=== PATIENT | female | born 1955 | race Caucasian/White ===

== ENCOUNTER 2020-08-06 00:04 | Inpatient (IN) | payer MEDICARE ==
[~2020-08-06] VITALS: Ht 162.6 cm; Wt 61.2 kg
--- NOTE | ~2020-08-06 | PROC ---
[address] [address] PROCEDURE REPORT Name: MARTITA TOTH Room: [address] [place] M.R.#: [id number] Admission: 08/06/20 Attend Phys: Tasia Thomas MD Discharge: 08/08/20 Date of : 55 Report #: [id number] THIS REPORT FOR: cc: Loly Singleton Maggie M. DO [facility],Medical Records Staff ~ For GI report, please see the Provation report in [employer] 7 content. By: [id number] Records Staff VIVI /ABDIEL
[2020-08-06 00:07] VITALS: BP 150/76
[2020-08-06] MEDS ORDERED: LEVO-T75 MCG PO (00:17)
[2020-08-06] MEDS ORDERED: SERTRALINE HCL100 MG PO (00:17)
[2020-08-06] MEDS ORDERED: MELOXICAM7.5 MG PO (00:18)
[2020-08-06] MEDS ORDERED: SINGULAIR 10 MG10 M1 PO (00:18)
[2020-08-06] MEDS ORDERED: CARISOPRODOL 3350 M1 PO (00:18)
[2020-08-06] MEDS ORDERED: FOLBIC RF TABL1 EACH PO (00:18)
[2020-08-06] MEDS ORDERED: PROBIOTIC1 EAC7 PO (00:19)
[2020-08-06] MEDS ORDERED: FISH OIL 1,001000 M3 PO (00:19)
[2020-08-06] MEDS ORDERED: RED YEAST RICE600 MG PO (00:19)
[2020-08-06] MEDS ORDERED: MACROBID 100 M100 MG PO (00:20)
[2020-08-06 00:23] LABS: HEMOGLOBIN 14.1 gm/dL (12.0-15.0); MCH 30.6 pg (26.0-34.0); MCHC 32.8 g/dL (28.0-37.0); MCV 93.5 fL (80.0-100.0); NUCLEATED RBCS 0 /100WBC; PLATELET COUNT* 286 thou/uL (150-400); RDW-CV 13.6 % (10.5-14.5); WBC 19.5 thou/uL (4.0-11.0)
[2020-08-06 00:32] LABS: CALCIUM 9.3 mg/dL (8.5-10.1); CREATININE 0.7 mg/dL (0.6-1.3); POTASSIUM 3.3 mmol/L (3.5-5.1)
[2020-08-06 00:34] LABS: PROTIME 10.3 Seconds (9.20-11.50)
[2020-08-06 00:43] LABS: ALBUMIN 4.2 g/dL (3.4-5.0); MAGNESIUM 1.9 mg/dL (1.8-2.4); TOTAL BILIRUBIN 0.4 mg/dL (<0.1-1.0); TOTAL PROTEIN 8.1 g/dL (6.4-8.2)
[2020-08-06 00:54] LABS: ABSOLUTE LYMPHOCYTES 1.4 thou/uL (0.8-5.3); ABSOLUTE MONOCYTES 0.4 thou/uL (0.0-1.2); ABSOLUTE NEUTROPHILS 17.7 thou/uL (1.6-8.1); PLATELET ESTIMATE ADEQUATE
[2020-08-06 02:26] LABS: URINE BILIRUBIN NEGATIVE (Negative); URINE BLOOD NEGATIVE (Negative); URINE CLARITY CLEAR; URINE COLOR YELLOW; URINE GLUCOSE-RANDOM NEGATIVE (Negative); URINE KETONES 1+ (Negative); URINE LEUKOCYTES-REFLEX TRACE (Negative); URINE NITRITE-REFLEX NEGATIVE (Negative); URINE PROTEIN NEGATIVE (Negative); URINE SPECIFIC GRAVITY <= 1.005 (1.005-1.030); URINE UROBILINOGEN 0.2 E.U./dl (0.2-1.0)
[2020-08-06 02:32] LABS: MUCUS None Seen strn/LPF (None Seen); SQUAMOUS 4-10 Moderate /LPF (0-3)
[2020-08-06 02:33] LABS: BACTERIA-REFLEX None Seen /HPF (None Seen); CASTS None Seen /LPF (None Seen); CRYSTALS None Seen /LPF (None Seen); URINE RBC None Seen /HPF (0-2); URINE WBC-REFLEX 6-15 Few /HPF (0-5); WBC CLUMPS Few (None Seen)
[2020-08-06 04:05] VITALS: BP 141/67
[2020-08-06 05:00] VITALS: BP 134/70
--- NOTE | 2020-08-06 07:40 | NUR ---
PATIENT ARRIVED ON FLOOR FROM ER AT ABOUT 0500. PATIENT ADMISSION HISTORY AND ASSESSMENT WAS COMPLETED CHARTED. IV FLUIDS ARE INFUSING AT 100 ML/HR. PATIENT WAS GIVEN PAIN AND NAUSEA MEDICINE ONCE WITH SOME RELIEF. WILL CONTINUE TO MONITOR.
[2020-08-06 08:45] VITALS: BP 105/58
[2020-08-06 09:47] LABS: CREATININE 0.6 mg/dL (0.6-1.3); POTASSIUM 3.7 mmol/L (3.5-5.1)
[2020-08-06 09:51] LABS: MAGNESIUM 1.9 mg/dL (1.8-2.4); PHOSPHORUS* 2.8 mg/dL (2.5-4.9)
--- NOTE | 2020-08-06 14:18 | EKG ---
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
--- NOTE | 2020-08-06 14:33 | NUR ---
Pt is A&O. Resides at home with her . Independent. No DME. No hx of HH or SNF. GI following, Pt may need an endoscopy. Goal is home at dc, no needs anticipated, possible dc tomorrow.
[2020-08-06 17:03] VITALS: BP 106/66
--- NOTE | 2020-08-06 17:19 | NUR ---
PATIENT NPO THIS AM INTO AFTERNOON FOR GI CONSULT. EGD DONE THIS EVENING. PATIENT TO HAVE CLEARS THIS EVENING AND BE NPO AFTER MIDNIGHT. PATIENT TO HAVE MRCP TOMORROW, PATIENT AWARE OF PLAN OF CARE. IVF INFUSING. UP TO BATHROOM WITH ASSISTANCE. PRN MORPHINE GIVEN X 1 EARLIER IN THE SHIFT. VISITORS AT BEDSIDE THIS SHIFT.
[2020-08-06 20:00] VITALS: BP 96/47
[2020-08-07 05:00] LABS: ABSOLUTE EOSINOPHILS 0.3 thou/uL (0.0-0.7); ABSOLUTE LYMPHOCYTES 0.5 thou/uL (0.8-5.3); ABSOLUTE MONOCYTES 0.4 thou/uL (0.0-1.2); ABSOLUTE NEUTROPHILS 3.8 thou/uL (1.6-8.1); BASOPHILS 0.2 %; EOSINOPHILS 5.1 %; HEMATOCRIT 35.4 % (37.0-47.0); LYMPHOCYTES 9.5 %; MCH 30.8 pg (26.0-34.0); MCHC 32.6 g/dL (28.0-37.0); MCV 94.4 fL (80.0-100.0); MONOCYTES 7.5 %; MPV 8.3 fl. (7.2-11.1); NUCLEATED RBCS 0 /100WBC; POLYS 77.7 %; RBC 3.75 mil/uL (4.20-5.00); RDW-CV 13.9 % (10.5-14.5); WBC 4.9 thou/uL (4.0-11.0)
[2020-08-07 05:06] LABS: HEMOGLOBIN 11.5 gm/dL (12.0-15.0); PLATELET COUNT* 170 thou/uL (150-400)
--- NOTE | 2020-08-07 05:12 | NUR ---
PATIENT SLEPT MOST OF THE NIGHT. IV FLUIDS CONTINUE TO INFUSE ORDERED. PATIENT DENIED THE NEED FOR NAUSEA OR PAIN MEDICINE FOR HER STOMACH. PATIENT HAS BEEN NPO SINCE MIDNIGHT FOR MRCP TODAY. WILL CONTINUE TO MONITOR.
[2020-08-07 05:13] LABS: INR 1.1; PROTIME 11.5 Seconds (9.20-11.50)
[2020-08-07 05:24] LABS: ALBUMIN 2.9 g/dL (3.4-5.0); CALCIUM 8.7 mg/dL (8.5-10.1); CREATININE 0.6 mg/dL (0.6-1.3); TOTAL BILIRUBIN 0.7 mg/dL (<0.1-1.0)
[2020-08-07 07:45] VITALS: BP 108/42
--- NOTE | 2020-08-07 13:51 | NUR ---
Pt had endoscopy yesterday. GI following. Anticipate dc in a few days. No needs anticipated.
[2020-08-07 15:59] LABS: HEMATOCRIT 38.3 % (37.0-47.0); HEMOGLOBIN 12.6 gm/dL (12.0-15.0)
[2020-08-07 16:00] VITALS: BP 120/66
[2020-08-07 16:11] LABS: CHOLESTEROL 194 mg/dL (<200); HDL CHOLESTEROL 85 mg/dL (>40); LDL CHOLESTEROL 95 mg/dL (<100); TC:HDL 2.3 Ratio (Not establshd); TRIGLYCERIDE 70 mg/dL (<150); VLDL 14 mg/dL (<40)
[2020-08-07 16:12] LABS: SERUM ASSESSMENT Clear
--- NOTE | 2020-08-07 18:30 | NUR ---
PT ALERT AND ORIENTED X 4. FAMILY AT BEDSIDE. PT TOLERATING PO INTAKE. PT SLEEPY MOST OF SHIFT DUE TO ATIVAN PRIOR TO MRI. CALL LIGHT WITHIN REACH. WILL CONTINUE TO MONITOR.
[2020-08-07 20:00] VITALS: BP 120/64
[2020-08-07 22:06] LABS: IgG 599 mg/dL (586-1602)
[2020-08-07 23:06] LABS: HEPATITIS B SURFACE AG Negative (Negative)
[2020-08-08 05:26] LABS: ABSOLUTE EOSINOPHILS 0.3 thou/uL (0.0-0.7); ABSOLUTE LYMPHOCYTES 0.7 thou/uL (0.8-5.3); ABSOLUTE MONOCYTES 0.4 thou/uL (0.0-1.2); ABSOLUTE NEUTROPHILS 4.5 thou/uL (1.6-8.1); BASOPHILS 0.5 %; EOSINOPHILS 4.8 %; HEMOGLOBIN 11.8 gm/dL (12.0-15.0); LYMPHOCYTES 12.3 %; MCHC 32.9 g/dL (28.0-37.0); MCV 94.2 fL (80.0-100.0); MONOCYTES 7.3 %; MPV 8.5 fl. (7.2-11.1); NUCLEATED RBCS 0 /100WBC; PLATELET COUNT* 166 thou/uL (150-400); POLYS 75.1 %; RBC 3.82 mil/uL (4.20-5.00); RDW-CV 14.1 % (10.5-14.5)
[2020-08-08 05:34] LABS: ALBUMIN 2.9 g/dL (3.4-5.0); CALCIUM 8.6 mg/dL (8.5-10.1); CREATININE 0.6 mg/dL (0.6-1.3); POTASSIUM 4.1 mmol/L (3.5-5.1); TOTAL BILIRUBIN 0.3 mg/dL (<0.1-1.0); TOTAL PROTEIN 6.2 g/dL (6.4-8.2)
[2020-08-08 07:35] VITALS: BP 136/76
--- NOTE | 2020-08-08 07:43 | NUR ---
PATIENT SLEPT MOST OF THE NIGHT. IV FLUIDS CONTINUE TO INFUSE AT 100 ML/HR. PATIENT HAD NO COMPLAINTS OF PAIN OF PAIN OR NAUSEA. PATIENT COULD POSSIBLY DISCHARGE HOME TODAY. WILL CONTINUE TO MONITOR.
[2020-08-08] MEDS ORDERED: CIPRO500 M1 PO (09:02)
[2020-08-08 11:09] VITALS: BP 136/76
--- NOTE | 2020-08-08 11:40 | NUR ---
PATIENT DISCHARGED TO HOME. DISCHARGE PAPERS REVIEWED AND SIGNED. PRESCRIPTIONA ND INFORMATION SHEETS GIVEN. IV REMOVED. PATIENT DENIES ANY FURTHER NEEDS. PATIENT TAKEN BY WHEELCHAIR TO EXIT. LEFT WITH .
[2020-08-08 12:59] VITALS: BP 136/76
[2020-08-08 19:07] LABS: ANA INTERPRETATION Negative (())
== END 2020-08-08 11:40 | disposition home or self-care (01) | DRG 442 ==
LOC: M.ERS 00:04 → M.TBA-ER 02:49 → M.ORTHSURG 02:49
PROVIDERS: Emergency Medicine; Internal Medicine; Internal Medicine Gastroenterology; ADMIT Internal Medicine; ATTEND Internal Medicine
PROC: 0DJ08ZZ Inspection of Upper Intestinal Tract, Via Natural or Artificial Opening Endoscopic (ICD-10-PCS; principal; 2020-08-06)
DX: B17.9 Acute viral hepatitis, unspecified (principal); E44.0 Moderate protein-calorie malnutrition; N39.0 Urinary tract infection, site not specified; D72.829 Elevated white blood cell count, unspecified; E03.9 Hypothyroidism, unspecified; M79.7 Fibromyalgia; K59.09 Other constipation; K83.4 Spasm of sphincter of Oddi; K44.9 Diaphragmatic hernia without obstruction or gangrene; K80.50 Calculus of bile duct without cholangitis or cholecystitis without obstruction; Z20.822 Contact with and (suspected) exposure to COVID-19; Z90.49 Acquired absence of other specified parts of digestive tract; Z88.0 Allergy status to penicillin; Z88.2 Allergy status to sulfonamides; Z82.49 Family history of ischemic heart disease and other diseases of the circulatory system; Z79.82 Long term (current) use of aspirin; Z79.899 Other long term (current) drug therapy; Z79.1 Long term (current) use of non-steroidal anti-inflammatories (NSAID); Z68.23 Body mass index [BMI] 23.0-23.9, adult

== ENCOUNTER → 2020-08-23 | Outpatient (CLI) | payer OTHER ==
[~2020-08-23] MED LIST: CARISOPRODOL 3350 M1 PO; CIPRO500 M1 PO; FISH OIL 1,001000 M3 PO; FOLBIC RF TABL1 EACH PO; LEVO-T75 MCG PO; MACROBID 100 M100 MG PO; MELOXICAM7.5 MG PO; PROBIOTIC1 EAC7 PO; RED YEAST RICE600 MG PO; SERTRALINE HCL100 MG PO; SINGULAIR 10 MG10 M1 PO
== END ==
LOC: M.RAD 12:10
PROVIDERS: ATTEND Family Medicine
DX: Z12.31 Encounter for screening mammogram for malignant neoplasm of breast (principal)

== ENCOUNTER → 2020-08-30 | Outpatient (CLI) | payer OTHER | LOC: M.ULTRA 12:40 | PROVIDERS: ATTEND Family Medicine | DX: R92.2 Inconclusive mammogram (principal); N63.20 Unspecified lump in the left breast, unspecified quadrant; N63.10 Unspecified lump in the right breast, unspecified quadrant ==

== ENCOUNTER → 2021-01-09 | Outpatient (CLI) | payer OTHER | LOC: M.RAD 08:33 | PROVIDERS: ATTEND Family Medicine | DX: M85.88 Other specified disorders of bone density and structure, other site (principal); Z78.0 Asymptomatic menopausal state ==

== ENCOUNTER → 2021-02-14 | Outpatient (CLI) | payer OTHER | LOC: M.LAB 11:35 | PROVIDERS: ATTEND Internal Medicine Gastroenterology | DX: Z01.812 Encounter for preprocedural laboratory examination (principal); Z20.822 Contact with and (suspected) exposure to COVID-19 ==